=== PATIENT | male | born 1955 | race Caucasian/White ===

== ENCOUNTER 2017-07-21 07:00 | Day surgery (SDC) | payer BC ==
[2017-07-21] MEDS ORDERED: fentaNYL 100 MCG/2 ML SDV ONE (07:07)
[2017-07-21] MEDS ORDERED: Midazolam 1 MG/ML 2 ML SDV ONE (07:07)
[2017-07-21] MEDS ORDERED: Propofol 200 MG/20 ML SDV ONE (07:08)
[2017-07-21] MEDS ORDERED: Lactated Ringers 1,000 ML IV SCH (07:30)
--- NOTE | 2017-07-21 09:40 | OR ---
DATE OF PROCEDURE: 07/21/2017 PROCEDURE: Colonoscopy. FINDINGS: 1. Descending colon polyp, approximately 5 mm, completely removed using cold biopsy forceps. 2. Sigmoid colon polyp, approximately 5 mm, completely removed using cold biopsy forceps. 3. Diverticulosis, mild. COMPLICATIONS: None. [employer]: None. ANESTHESIA: MAC. PREOPERATIVE DIAGNOSIS: Family history of colorectal cancer/history of colon polyps. POSTOPERATIVE DIAGNOSIS: Family history of colorectal cancer/history of colon polyps. RISKS: Risks, benefits, alternatives, and limitations including, but not limited to infection, bleeding, and perforation were explained to the patient, who wished to proceed. PROCEDURE IN DETAIL: The patient was placed in left lateral decubitus position. Digital rectal exam was performed without abnormality. The scope was introduced and advanced atraumatically to the ileocecal valve. The scope was brought back to the ascending, transverse, descending colon, and retroflexed. The aforementioned polyps were identified and completely removed. The patient had very mild diverticulosis. No abnormalities on retroflexed. The area of previous thrombosed hemorrhoid had been resolved. Rohan Hassan MD /[id number]
== END 2017-07-21 09:33 | disposition home or self-care (01) ==
LOC: JP.SDS 07:00
PROVIDERS: ATTEND Surgery
DX: Z12.11 Encounter for screening for malignant neoplasm of colon (principal); D12.3 Benign neoplasm of transverse colon; K63.5 Polyp of colon; K57.30 Diverticulosis of large intestine without perforation or abscess without bleeding; Z80.0 Family history of malignant neoplasm of digestive organs; E78.5 Hyperlipidemia, unspecified; K21.9 Gastro-esophageal reflux disease without esophagitis; Z86.010 Personal history of colon polyps; Z88.6 Allergy status to analgesic agent
CPT/HCPCS: 45380; J2250; J2704; J3010; J7120; 88305

== ENCOUNTER 2021-11-15 16:32 | Emergency (ER) | payer MEDICARE, BC ==
[2021-11-15] MEDS ORDERED: Bacitracin Oint 1 GM U/D Packet TOP ONE (17:01)
[2021-11-15] MEDS ORDERED: Lidocaine 1% 5 ML VIAL INJECT ONE (17:01)
== END 2021-11-15 17:39 | disposition home or self-care (01) ==
LOC: JP.ED 16:32
DX: S61.210A Laceration without foreign body of right index finger without damage to nail, initial encounter (principal); Z88.6 Allergy status to analgesic agent; Z79.899 Other long term (current) drug therapy; Z79.01 Long term (current) use of anticoagulants; Z79.84 Long term (current) use of oral hypoglycemic drugs; W26.8XXA Contact with other sharp object(s), not elsewhere classified, initial encounter
CPT/HCPCS: 12001; 99282; 99283

== ENCOUNTER 2023-03-24 04:29 | Emergency (ER) | payer MEDICARE, BC ==
[2023-03-24] MEDS: Acetaminophen 500 MG Tab PO ONE (05:07)
[2023-03-24 05:11] LABS: BASOPHILS ABSOLUTE AUTO 0.03 K/uL (0.00-0.10); BASOPHILS PERCENT AUTO 0.3 % (0.1-1.3); EOSINOPHILS ABSOLUTE AUTO 0.08 K/uL (0.00-0.40); EOSINOPHILS PERCENT AUTO 0.8 % (0.0-5.4); HEMATOCRIT 43.1 % (38.4-49.7); HEMOGLOBIN 14.7 g/dL (12.9-16.9); IMMATURE GRAN ABSOLUTE AUTO 0.03 K/uL (0.00-0.23); IMMATURE GRAN PERCENT AUTO 0.3 % (0.0-0.7); LYMPHOCYTES ABSOLUTE AUTO 0.57 K/uL (0.8-3.3); LYMPHOCYTES PERCENT AUTO 5.6 % (11.4-47.7); MEAN CORPUSCULAR HEMOGLOBIN 29.3 pg (31.6-35.5); MEAN CORPUSCULAR HGB CONC 34.1 g/dL (31.6-35.5); MONOCYTES ABSOLUTE AUTO 0.77 K/uL (0.20-0.90); MONOCYTES PERCENT AUTO 7.5 % (3.3-12.6); NEUTROPHILS ABSOLUTE AUTO 8.75 K/uL (1.0-7.6); NEUTROPHILS PERCENT AUTO 85.5 % (40.0-78.1); PLATELET COUNT,PLT 147 K/uL (130-375); RED BLOOD CELL COUNT 5.01 M/uL (4.14-5.76); WHITE BLOOD CELL COUNT,WBC 10.2 K/uL (3.2-11.0)
[2023-03-24 05:26] LABS: BLOOD UREA NITROGEN,BUN 19 mg/dL (7-18); CALCIUM 8.3 mg/dL (8.5-10.1); CARBON DIOXIDE,CO2 30 mmol/L (21-32); CHLORIDE,CL 101 mmol/L (100-108); CREATININE 1.1 mg/dL (0.8-1.3); EST CRCL DRUG DOSING (CG) 78.91 mL/min; ESTIMATED GFR 73 mL/min (>60); GLUCOSE RANDOM 143 mg/dL (74-106); INR 3.2; POTASSIUM,K 4.6 mmol/L (3.6-5.2); PROTHROMBIN TIME 30.5 sec (9.2-10.6); SODIUM,NA 137 mmol/L (140-148)
[2023-03-24 05:37] LABS: ANION GAP 10.6 mmol/L (5.0-14.0); C-REACTIVE PROTEIN < 0.50 mg/dL (<0.50)
[2023-03-24 05:38] LABS: CORONAVIRUS COVID-19 NAA NEGATIVE (NEGATIVE); INFLUENZA A NAA NEGATIVE (NEGATIVE); INFLUENZA B NAA NEGATIVE (NEGATIVE); RESPIRATORY SYNCYTIAL VIR NAA NEGATIVE (NEGATIVE)
[2023-03-24] MEDS: cefTRIAXone 2 GM in Sodium Chloride 0.9% 50 ML IV ONE (05:44)
[2023-03-24] MEDS: cefTRIAXone 1 GM Vial IM ONE (06:03)
[2023-03-24] MEDS: Azithromycin 250 MG Tab PO ONE (06:04)
[2023-03-24] MEDS: Lidocaine 1% 5 ML VIAL ONE (06:04)
== END 2023-03-24 06:33 | disposition home or self-care (01) ==
LOC: JP.ED 04:29
DX: J18.9 Pneumonia, unspecified organism (principal); E78.00 Pure hypercholesterolemia, unspecified; K21.9 Gastro-esophageal reflux disease without esophagitis; Z79.01 Long term (current) use of anticoagulants; Z79.899 Other long term (current) drug therapy; Z88.6 Allergy status to analgesic agent
CPT/HCPCS: 0241U; 36415; 71045; 71045-26; 80048; 83605; 85025; 85610; 86140; 96372; 99283; 99284; A9270-GY; J0696